=== PATIENT | male | born 1995 | race African-American/Black ===

== ENCOUNTER 2018-02-08 18:00 | Emergency (ER) | payer SELFPAY ==
[~2018-02-08] VITALS: Ht 177.8 cm; Wt 75.0 kg
[2018-02-08 18:06] VITALS: BP 128/60; PULSE 89; RESP 18; TEMP 99.2; O2SAT 99
--- NOTE | 2018-02-08 19:07 | PD ---
HPI Chief Complaint: General Weakness Time Seen by Provider: 18:59 Travel History International Travel<30 days: No Contact w/Intl Traveler<30days: No Traveled to known affect area: No History of Present Illness HPI 22 yo M c/o and "changes in my body I do not understand." He reports new arshad muscles. He reports some crepitus with range of motion of the knees. He reports feeling weak in the legs sometimes. He reports any muscles in the region of the lateral elbows. 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 He has had no loss of consciousness. He has had no falls. He has had no difficulty walking and performing activities of daily living. Patient has no past medical history. Review of Systems Except as stated in HPI: all other systems reviewed are Neg General / Constitutional: No: Fever Physical Exam Narrative GENERAL: 22-year-old male well-nourished well-developed no acute distress Vital Signs Date Time Temp Pulse Resp B/P (MAP) Pulse Ox O2 Delivery O2 Flow Rate FiO2 02/08/18 18:06 99.2 89 18 128/60 (82) 99 SKIN: Warm and dry. HEAD: Atraumatic. Normocephalic. EYES: Pupils equal and round. No scleral icterus. No injection or drainage. ENT: No nasal bleeding or discharge. Mucous membranes pink and moist. NECK: Trachea midline. No JVD. CARDIOVASCULAR: Regular rate and rhythm. RESPIRATORY: No accessory muscle use. Clear to auscultation. Breath sounds equal bilaterally. GASTROINTESTINAL: Abdomen soft, non-tender, nondistended. Hepatic and splenic margins not palpable. MUSCULOSKELETAL: There is some prominence of the anterior lower leg musculature which is symmetric. There is also some prominence of the supination muscles of the bilateral upper extremities. Motor function in the bilateral lower extremities is 5/5 at the toes and ankles knees and hips. Upper extremity motor function is normal 5/5 bilaterally at the shoulder elbow and hands. NEUROLOGICAL: Awake and alert. No obvious cranial nerve deficits. Motor grossly within normal limits. Five out of 5 muscle strength in the arms and legs. Normal speech. PSYCHIATRIC: Appropriate mood and affect; insight and judgment normal. Data Data Last Documented VS Vital Signs Date Time Temp Pulse Resp B/P (MAP) Pulse Ox O2 Delivery O2 Flow Rate FiO2 02/08/18 18:06 99.2 89 18 128/60 (82) 99 Orders Orders Ed Discharge Order (02/08/18 19:07) MDM Medical Screen Exam Complete: Yes Emergency Medical Condition: No Plan A medical screening exam was performed: At the time of evaluation the presenting medical condition was determined not to be of an emergent nature. The patient was given the option of receiving additional care, but declined. Patient was given options for additional community resources from which to obtain care. The Patient Has Been advised to seek medical attention for their presenting complaint. The patient has been advised to return to the ER at any time if an emergent condition develops. Primary Impression: Encounter for medical screening examination Referrals: [facility] call for appointment Med/Other Pt SpecificInfo: No Change to Meds Disposition: 01 DISCHARGE HOME Condition: Stable Vini Hollis MD February 08, 2018 19:07
== END 2018-02-08 19:28 | disposition home or self-care (01) ==
LOC: NEPE 18:00
DX: R53.1 Weakness (principal)
CPT/HCPCS: 99281

== ENCOUNTER 2018-03-08 22:29 | Emergency (ER) | payer SELFPAY ==
[~2018-03-08] VITALS: Ht 175.3 cm; Wt 80.0 kg
[2018-03-08 22:39] VITALS: BP 112/57; PULSE 82; RESP 18; TEMP 98.5; O2SAT 98
--- NOTE | 2018-03-08 22:51 | PD ---
HPI Chief Complaint: Skin Problem Time Seen by Provider: 22:48 Travel History International Travel<30 days: No Contact w/Intl Traveler<30days: No Traveled to known affect area: No History of Present Illness HPI 22-year-old male presents for evaluation of pruritic skin lesions on the arms. Symptoms started this morning. The pruritic lesions are only localized to his arms. They did not involve his torso or his lower extremities or his face or his neck. He reports over the past few days he has been trimming palm trees. Symptoms are mild, no obvious aggravating or relieving factors. No other associated signs or symptoms. No other complaints. [facility] Past Medical History Medical History: Denies Significant Hx Diminished Hearing: No Tetanus Vaccination: Unknown Influenza Vaccination: No Past Surgical History Surgical History: No Previous Surgery Social History Alcohol Use: No Tobacco Use: Yes Substance Use: Yes (willjauna) Allergies-Medications (Allergen,Severity, Reaction): Coded Allergies: No Known Allergies (Unverified , 03/08/18) Review of Systems General / Constitutional: No: Fever, Chills HENT: No: Headaches, Sore Throat Cardiovascular: No: Chest Pain or Discomfort Respiratory: No: Cough, Shortness of Breath Skin: Positive Rash, Positive Itching Physical Exam Narrative GENERAL: Well-developed well-nourished male no acute distress SKIN: Warm and dry. Patient has a few scattered papular lesions on the upper extremities. No vesicles, no pustules, no purpura, no petechiae, no wheals HEAD: Atraumatic. Normocephalic. EYES: Pupils equal and round. No scleral icterus. No injection or drainage. ENT: No nasal bleeding or discharge. Mucous membranes pink and moist. NECK: Trachea midline. No JVD. CARDIOVASCULAR: Regular rate and rhythm. No murmur appreciated. RESPIRATORY: No accessory muscle use. Clear to auscultation. Breath sounds equal bilaterally. Data Data Last Documented VS Vital Signs Date Time Temp Pulse Resp B/P (MAP) Pulse Ox O2 Delivery O2 Flow Rate FiO2 03/08/18 22:39 98.5 82 18 112/57 (75) 98 Orders Orders Ed Discharge Order (03/08/18 22:48) MDM Medical Decision Making Medical Screen Exam Complete: Yes Emergency Medical Condition: Yes Medical Record Reviewed: Yes Differential Diagnosis Bug bites, contact dermatitis, viral exanthem Narrative Course Patient has obvious bug bites on the arms where he was not covered with clothing when trimming palm trees over the past 2 days. Discussed using over- the-counter Benadryl and hydrocortisone cream and the importance of avoiding bug bites in the future. Stable for discharge. Diagnosis Primary Impression: Bug bites Additional Instructions: Avoid scratching. Can use [id number] hydrocortisone cream on the skin lesions. Use Benadryl as needed for itching [id number] per dosing instructions on the bottle. Do not drive, drink alcohol, operate heavy machinery or climb ladders when taking Benadryl as it may cause sedation. Med/Other Pt SpecificInfo: No Change to Meds Disposition: 01 DISCHARGE HOME Condition: Stable Amado Schrader Mar 08, 2018 22:51
== END 2018-03-08 23:00 | disposition home or self-care (01) ==
LOC: NEPD 22:29
DX: S40.862A Insect bite (nonvenomous) of left upper arm, initial encounter (principal); S40.861A Insect bite (nonvenomous) of right upper arm, initial encounter; Z72.0 Tobacco use; W57.XXXA Bitten or stung by nonvenomous insect and other nonvenomous arthropods, initial encounter; Y93.H2 Activity, gardening and landscaping
CPT/HCPCS: 99282